=== PATIENT | male | born 1970 | race Caucasian/White ===

== ENCOUNTER 2021-10-09 08:48 | Outpatient (CLI) | payer OTHER, SELFPAY ==
[2021-10-10 17:03] LABS: Testosterone, Adult Male 410 ng/dL (300-890)
== END 2021-10-09 08:49 | disposition home or self-care (01) ==
LOC: NFLDREF 08:48
PROVIDERS: PCP Family Medicine; Visit Provider Family Medicine
DX: E29.1 Testicular hypofunction (principal)
CPT/HCPCS: 84403

== ENCOUNTER 2021-12-03 06:25 | Day surgery (SDC) | payer OTHER, SELFPAY ==
[2021-12-03] VITALS (16 sets, daily range): BP systolic 118–155; BP diastolic 77–102; PULSE 67–100; RESP 16–20; TEMP 36.4–36.9; O2SAT 92–100; BMI 29.7
[2021-12-03] MEDS: LACTATED RINGERS 1000 ML 1,000 ML 100 ML IV (06:30)
[2021-12-03] MEDS: CELECOXIB 200 MG CAPSULE PO (07:15)
[2021-12-03] MEDS: ACETAMINOPHEN 500 MG TABLET 1000 MG PO (07:15)
[2021-12-03] MEDS: OXYCODONE (CR) 10 MG TAB.ER.12H PO (07:15)
[2021-12-03] MEDS: SODIUM CHLORIDE 0.9 % (FLUSH) 10 ML SYRINGE IVF (07:15)
[2021-12-03] MEDS: fentaNYL 100 MCG/2 ML inj IVP (07:30)
[2021-12-03] MEDS: MIDAZOLAM HCL 1 MG/ML inj IVP (07:30)
--- NOTE | 2021-12-03 07:33 | SUR.PREOP ---
TIME?OUT:?724, left shoulder PT/RN/MDA?VERIFICATION?OF?SURGICAL?SITE,?PROCEDURE,?AND?CONSENT OBTAINED?PRIOR?TO?INVASIVE?PROCEDURE.
[2021-12-03] MEDS: CEFAZOLIN 2 GM INJ IVP (08:00)
--- NOTE | 2021-12-03 08:30 | W.PM.NB ---
Nerve Block Nerve Block Time Seen by Provider: 07:30 Date Seen: 12/03/21 Type of block requested by surgeon for post-operative analgesia: interscalene Side: left Time out performed: Yes Verification of patient name: Yes Verification of date of : Yes Site marking: site marked Name of person performing procedure: Ajay Assistants, if any: Robinson Continuous monitoring Was continuous monitoring of O2 sat, B/P, monitor and storage bin tender, recorded every 15 minutes?: Yes Procedure Checklist: sterile prep, needles and gloves Ultrasound guided. Images saved: Yes Medications given in 5ml increments after negative aspiration: Ropivicaine %: 0.5 mL: 20 Needle gauge: 22 Decadron (mg): 10 Precedex (mcg): 25 Patient tolerated procedure well: Yes Block Charges Block Charge (with Pro Fee): Brachial Plexus Use of Ultrasound Machine for Block: Yes- US Guidance/pain block
--- NOTE | 2021-12-03 08:48 | PM.ORPRC ---
Procedure Note Date of procedure: 12/03/21 Procedure: SURGEON: Sid Daniels MD CARE TRANSITIONS MANAGER: Roxann Feldman PA-C PREOPERATIVE DIAGNOSIS: Left shoulder pain, upper subscap tear, biceps tendinopathy, rotator cuff bursitis POSTOPERATIVE DIAGNOSIS: Left shoulder pain, normal subscap, normal biceps, rotator cuff bursitis NAME OF OPERATION: Left shoulder revision arthroscopic subacromial decompression, subacromial bursectomy ANESTHESIA: Supraclavicular block plus general endotracheal ESTIMATED BLOOD LOSS: 5 mL COMPLICATIONS: None SPECIMENS: None DRAINS: None PREOPERATIVE ANTIBIOTICS: Ancef 2 grams INDICATIONS: The patient is a 51-year-old male with a history of left shoulder pain secondary to the above diagnoses. Despite appropriate non operative management, they continue to have symptoms. Operative intervention was recommended. The risks, benefits and expected outcomes were discussed in detail. These included but were not limited to: Infection, bleeding, injury to blood vessel or nerve, venous thromboembolism. All questions were answered to their satisfaction. PROCEDURE: A supraclavicular block was placed by Anesthesia. General anesthesia was administered. The patient was placed in the high beach chair position. The right shoulder was prepped and draped in the usual sterile fashion. The glenohumeral joint was infiltrated with 20 mL of normal saline with epinephrine. The posterior portal was established, the arthroscope was introduced. The anterior portal was established, Diagnostic arthroscopy was performed with findings as follows: The biceps and biceps anchor are intact, there is no instability, there is no intra-articular tendinopathy. The anterior, posterior and superior labrum are normal. Articular surfaces on the humeral head and glenoid are normal. There are no loose bodies. The insertion of the supraspinatus shows a minimal amount of degenerative fraying. The subscap appears pristine. The arthroscope was placed in the subacromial space, the lateral portal was established. The Arthrex [place] was used to dissect the acromion free. Revision acromioplasty was performed with the bur in the posterior portal. An accessory anterolateral portal was placed. There was significant thickening of the subacromial/subdeltoid bursa. This was aggressively debrided with the shaver. The bursal surface of the insertion of the rotator cuff, including subscap is pristine. Portals were closed with a 3-0 nylon. A dry dressing, polar care and sling were applied. Sponge and needle counts were correct x2. The patient tolerated the procedure well. There were no apparent complications. They were carefully transferred to the hospital bed and taken to the postanesthesia care unit in satisfactory condition. PLAN: The patient will be discharged to home. Active range of motion of the shoulder will be allowed, once the block has worn off. They can work on active range of motion of the elbow, wrist and fingers. They will follow up in the office next week for a wound check and an AP and transscapular Y-view of the shoulder prior to being seen.
--- NOTE | 2021-12-03 09:11 | W.ANESCHARGE ---
Anesthesia Charges Start Date/Time Anesthesia Start Date: 12/03/21 Anesthesia Start Time: 07:44 Stop Date/Time Anesthesia Stop Date: 12/03/21 Anesthesia Stop Time: 09:09 Summary Emergency: No
[2021-12-03] MEDS: fentaNYL 100 MCG/2 ML inj 50 MCG IVP ×2 (09:32→09:41)
--- NOTE | 2021-12-03 09:45 | W.ANESCHARGE ---
Anesthesia Charges Start Date/Time Anesthesia Start Date: 12/03/21 Anesthesia Start Time: 07:44 Stop Date/Time Anesthesia Stop Date: 12/03/21 Anesthesia Stop Time: 09:09 Summary Emergency: No
== END 2021-12-03 11:29 | disposition home or self-care (01) ==
PROVIDERS: PCP Family Medicine; Visit Provider Orthopaedic Surgery
PROC: (CPT 23412; principal; 2021-12-03 07:45)
DX: M25.512 Pain in left shoulder (principal); M75.52 Bursitis of left shoulder
CPT/HCPCS: 29822; 29826; 01630; 64415; 76942; A9270; J0330; J0690; J1100; J2250; J2405; J2704; J2795; J3010; J7120

== ENCOUNTER 2022-01-21 12:38 | Outpatient (CLI) | payer OTHER, SELFPAY ==
--- NOTE | 2022-01-21 13:00 | CRLHL7_ITS ---
For Patients: As a result of the Century Cures Act, medical imaging exams and procedure reports are released immediately into your electronic medical record. You may view this report before your referring provider. If you have questions, please contact your health care provider. Indication: Left neck and arm pain. Technique: MRI of the cervical spine was performed without the use of intravenous contrast. Comparison: None relevant available. Findings: The cervical vertebral body heights are maintained without evidence of fracture. No discrete T1 hypointense marrow infiltrating process. Mild disc desiccation without significant height loss. Mild reversal to the cervical lordosis. No abnormal cord signal. C2-3: No spinal canal or neural foraminal narrowing. C3-4: No spinal canal or neural foraminal narrowing. C4-5: Shallow disc bulge with minimal spinal canal narrowing. Mild right neural foraminal narrowing secondary to uncovertebral joint and facet hypertrophy. C5-6: Mild disc bulge effaces the ventral thecal sac and results in mild spinal canal narrowing. Moderate neural foraminal narrowing secondary to uncovertebral joint and facet hypertrophy. C6-7: Disc bulge with superimposed central disc protrusion with resultant mild spinal canal narrowing. No neural foraminal narrowing. C7-T1: No spinal canal or neural foraminal narrowing. Impression: 1. At C4-5, mild right neural foraminal narrowing. 2. At C5-6, mild spinal canal with moderate neural foraminal narrowing. 3. At C6-7, mild spinal canal narrowing. 4. No abnormal cord signal. Dictated by Mario Mckeon MD @ 01/21/2022 8:25:18 PM (Electronically Signed)
== END 2022-01-21 12:39 | disposition home or self-care (01) ==
LOC: MRI 12:38
PROVIDERS: PCP Family Medicine; Visit Provider Family Medicine
DX: M54.2 Cervicalgia (principal); M54.12 Radiculopathy, cervical region; M50.221 Other cervical disc displacement at C4-C5 level; M50.222 Other cervical disc displacement at C5-C6 level; M50.223 Other cervical disc displacement at C6-C7 level
CPT/HCPCS: 72141

== ENCOUNTER 2022-02-17 16:15 | Outpatient (RCR) | payer OTHER, SELFPAY | END 2022-02-17 17:16 | disposition home or self-care (01) | PROVIDERS: PCP Family Medicine; Visit Provider Physician Assistant Surgical | DX: Z98.890 Other specified postprocedural states (principal); Z51.89 Encounter for other specified aftercare | CPT/HCPCS: 97110; 97140; 97161 ==

== ENCOUNTER 2022-11-26 14:56 | Outpatient (REF) | payer OTHER, SELFPAY | END 2022-11-26 14:57 | disposition home or self-care (01) | LOC: NFLDREF 14:56 | PROVIDERS: PCP Family Medicine; Referring Provider Family Medicine; Visit Provider Family Medicine | DX: E29.1 Testicular hypofunction (principal) | CPT/HCPCS: 84403 ==

== ENCOUNTER 2022-12-18 07:52 | Outpatient (CLI) | payer OTHER, SELFPAY | END 2022-12-18 07:53 | disposition home or self-care (01) | LOC: NFLDREF 12-20 20:03 | PROVIDERS: PCP Family Medicine; Referring Provider Family Medicine; Visit Provider Family Medicine | DX: Z12.5 Encounter for screening for malignant neoplasm of prostate (principal); Z13.1 Encounter for screening for diabetes mellitus | CPT/HCPCS: 82947; 84153 ==

== ENCOUNTER 2023-05-11 12:46 | Outpatient (CLI) | payer OTHER, SELFPAY ==
--- NOTE | 2023-05-27 12:02 | W.PM.SLEEP ---
Sleep Study Details Details Interpreting Provider: Elayne Date of Sleep Study: 05/11/23 Sleep Study Details: STUDY TYPE:? Home unattended ? BMI:? 29.8 ORDERING PROVIDER:Jeff Holly INDICATION:? Concerns about sleep apnea ? SLEEP SUMMARY:? 484.8 minutes monitored RESPIRATORY SUMMARY:? AHI 16, supine AHI 76.6, right lateral 18.8, left lateral 8.8, prone 8.3 Low oxygen 85 0.6% of study oxygen less than 90% Snoring 88.2% PERIODIC LIMB MOVEMENTS OF SLEEP:? Not recorded CARDIAC:? 56 beats per minute IMPRESSION:? Moderate obstructive sleep apnea with very severe apnea in the supine position RECOMMENDATION: Treatment options include CPAP AutoSet 4-17, dental appliance and/or airway expansion surgery.
== END 2023-05-11 12:47 | disposition home or self-care (01) ==
LOC: SLEEP 12:48
PROVIDERS: PCP Family Medicine; Visit Provider Otolaryngology
DX: G47.33 Obstructive sleep apnea (adult) (pediatric) (principal)
CPT/HCPCS: 95806

== ENCOUNTER 2024-01-20 08:00 | Outpatient (RCR) | payer OTHER, SELFPAY ==
--- NOTE | 2024-01-11 17:37 | OT.OPOE ---
OT Outpatient Ortho Eval OT Outpatient Ortho Eval* Start: 01/11/24 12:41 Freq: Status: Active Protocol: Document 01/11/24 12:41 LCN (Rec: 01/11/24 13:02 LCN [id number]) E-signed By Luli Mccullough, OTR/L, CLT OT OP Ortho Eval Details Complexity Complexity Low Insurance Information Insurance Information [facility] Outpatient History/Precautions Current Condition/Medical Diagnosis Referring Provider Bakari Bradshaw Medical Diagnoses Left medial elbow epicondylitis Treatment Diagnosis L elbow pain, stiffness, weakness of drop clipper Date of Onset 01/11/24 Other Conditions Pt very healthy, mostly orthopedic issues in the past 4 shoulder surgeries of L side ( ended up shortening lateral clavicle to reduce impingement 2015, all resolved now) and cervical radiculopathy (C5-6 level ; had EMG 2021 responded well to 10 d course of oral steroids) Medical/Functional History Medical History Reviewed Yes Prior Level of Function/Mobility Pt active at high level, 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 Keyboard on table top Hobbies rasing chickens[place] , kids events [employer] free weights 5d/ week. Ortho Subjective Subjective Subjective Mickey Jordan is a pleasant 53 y/o male who fll a pop in L medial elbow while doing a weight lifting shift from lift to overhead press, no bruising after. Low grade pain during certain planes of movement, gets worse if he leans on it while driving, using keyboard and while scrolling on his phone. Has to avoid forward leaning row to triceps extension and lat pull downs. Sore for 1-2 hours after weightlifting. He does frequent stretching of his forearms, no trial of heat /ice. No imagery yet, but did see ortho for this Dr. Daniels on 08/19/23, was referred for OT at that time. Re-referred for OT voa is PCP Bakari Bradshaw at his annual fall check up. Pain Assessment Pain Pain Yes Pain Comments 2-3/10 with resisted drop clipper, pinching, moving between pronation to supination. Mostly tender at L medial epicondyle but also at lateral epicondyle. Denies numbness/tingling. PALPATION--Point tender at medial epicondyle and pronator teres, gritty muscle bellies at FCU/flexor muscle bulk. Thickness at tricep and biceps inserts. Range of Motion and Strength Shoulder Range of Motion and Strength Shoulder Range of Motion and Strength Full AROM for B shoulders, elbows, wrists. MMT SH FL , ABD 5/5 L shoulder IR at rib side refers to medial elbow 4+/5. Elbow/Forearm Range of Motion and Strength Elbow/Forearm Range of Motion and MMT Biceps 4+/5 with 2-3/10 Strength soreness at medial elbow while resisted in supination and neutral, pronated better. Triceps 5/5 WR EX, RD, UD and pronation all WNL. Supination 4/5 with 2-3/10 twinge at L medial elbow 4+/5. Hand Pinch/Statistical Consultant Strength Hand Pinch/Statistical Consultant Strength Hand Pinch/Statistical Consultant Strength Left Hand,Right Hand Left Hand Statistical Consultant Strength Position 1 in Elbow 110 Flexion (lbs) Statistical Consultant Strength Position 2 in Elbow 75 Extension (lbs) Lateral Pinch Strength (lbs) 29 Three Point Pinch (lbs) 25 Right Hand Statistical Consultant Strength Position 1 in Elbow 114 Flexion (lbs) Statistical Consultant Strength Position 2 in Elbow 110 Extension (lbs) Lateral Pinch Strength (lbs) 30 Three Point Pinch (lbs) 25 Comments Comments Statistical Consultant WNL for age/gender (103- 113 is WNL). L drop clipper in position 2/elbow extended is 3 /10 pn tender at lateral epicondyle. Upper Extremity Special Tests Elbow Cozens Test Negative Right,Positive Left OT Problems Problems Problems Decreased Strength,Pain, Sensory Sensitivity,Lifting, Gripping Problems Comments 3/10 painful during scap row, pull down, has to watch hand positioning carefully, adjusting hands while lifting larger laods. Patient Potential Excellent Assessment Assessment Assessment Mickey is having L elbow ( moreso medial but occasionally lateral epicondyle area) tissue texture changes, edema, pain, ROM and drop clipper strength loss of L /wrist/elbow limiting daily tasks, impacting lifting, gripping and prolonged typing/scrolling positions. He would benefit from skilled OT to address these areas. Occupational Therapy Treatment Plan - OP Potential Rehabilitation Potential Excellent Set Goals Goals Set with Patient Yes Goals Goals In 8 weeks, Mickey will demonstrate:? 1) Decreased pn to <2/10 80% of the time with sustained gripping, carrying groceries, reading on tablet and weightlifting. 2) I HEP for stretching, gradual strengthening and self mgmt strategies. 3) improved L drop clipper strength to 100# with elbow extended and balanced MMT of SH IR, biceps in flexion/neutral with L elbow pain < 1/10. 4)??Pt to be fit with functional bracing (for elbow, wrist) and use adaptive strategies to protect joint integrity to support less pain with ADL. Treatment Plan Treatment Plan Evaluation,Edema Control, Iontophoresis,Joint Mobilization,Manual Therapy, Ultrasound,Therapeutic Exercise,Self Care/Home Management,Education Expected Frequency 1-2x Week Expected Duration 8-10 Weeks Home Program Home Program Home Program Initiated Home Program Specifics Ice cup massage after lifting for the next weeks, positioning of elbow for reading, computer tasks with improved joint protection, and added wrist rotation to WR EX and WR FL end range stretches . Certification Certification Statement I Certify That: Therapy Services Provided, Therapy Plan Established, Therapy Plan Reviewed Certification Information Clinic ID # [id number] Initial Certification Date 01/11/24 Recertification Due Date 04/10/24 Provider Signature Required Communication Only-No Signature Required
== END 2024-05-19 23:59 | disposition home or self-care (01) ==
PROVIDERS: PCP Family Medicine; Visit Provider Family Medicine
DX: M77.02 Medial epicondylitis, left elbow (principal); M25.522 Pain in left elbow; M25.622 Stiffness of left elbow, not elsewhere classified; R53.1 Weakness; Z51.89 Encounter for other specified aftercare
CPT/HCPCS: 97033; 97035; 97140; 97165; 97535

== ENCOUNTER 2024-04-28 08:00 | Outpatient (CLI) | payer OTHER, SELFPAY | END 2024-04-28 08:01 | disposition home or self-care (01) | LOC: NFLDREF 04-29 09:51 | PROVIDERS: PCP Family Medicine; Referring Provider Family Medicine; Visit Provider Family Medicine | DX: N52.9 Male erectile dysfunction, unspecified (principal); Z13.220 Encounter for screening for lipoid disorders | CPT/HCPCS: 80061; 84403 ==

== ENCOUNTER 2024-05-11 06:55 | Outpatient (CLI) | payer OTHER, SELFPAY ==
--- NOTE | 2024-05-11 07:15 | MR_ITS ---
[address] [address] Phone:?[phone] Fax:?[phone] Referring Physician Information: Mickey Naik M.D. [address] [facility] [address] Phone:?[phone] Fax:?[phone] Patient:?Mickey Handjoycerommel CherylB:?1970 Sex:?Male Phone:?[phone] [facility] MRN:?[id number] Exam Date:?05/11/2024 Original Report EXAM: MRI of the LEFT ELBOW, without contrast CLINICAL: Male, 53 years old, with left elbow pain. INDICATION: Evaluate for elbow internal derangement etiology. PRIOR SURGERY: None reported. PLAIN FILMS: None available. COMPARISONS: None available. TECHNICAL: Using a 1.5T MR scanner and a localizing surface coil: 3.0 mm?sagittals: PD, T2 3.0 mm?coronals: PD, T2, STIR 3.0 mm?axials: PD, T2 SEDATION: None. CONTRAST: None. IMPRESSION: 1. Moderate tendinosis/tendinopathy and ill-defined deep surface partial tear of the common extensor tendon origin at the lateral humeral epicondyle without adjacent reactive marrow or soft tissue edema, but with potential to be associated with any clinical presentation of lateral epicondylitis. 2. Otherwise unremarkable left elbow MRI. 3. No osteochondral abnormalities. 4. No ligament injuries. 5. No other musculotendinous abnormalities. 6. No pathologic effusion. FINDINGS: Elbow joint: Effusion: Physiologic. Ganglion cyst: None. Radiohumeral plica: No pathologic plica. Osteochondral surfaces: Intact and normal. Loose bodies: None. Bursae: No pathologic bursae/bursitis. Bones: Humerus: Intact and normal.. Radius: Intact and normal. Ulna: Intact and normal. Ligaments: Medial ulnar collateral: Intact and normal. Radial collateral proper: Intact and normal. Lateral ulnar collateral: Intact and normal. Myotendinous structures: Biceps: Intact and normal. Triceps: Intact and normal. Brachialis: Intact and normal. Supinator: Intact and normal. Forearm extensors: Moderate intrasubstance and deep surface tendinopathy and expected ill-defined deep surface partial tear of the common extensor tendon origin at lateral humeral epicondyle is not associated with full-thickness tear and without overlying soft tissue edema or underlying bone marrow edema (coronal STIR & PD series 5 & 7, images 9-12; axial PD & T2 series 4 & 3, images 19-16). Forearm flexors: Intact and normal. Nerves: Ulnar: Normal. No anconeus epitrochlearis accessory muscle. Median: Normal. Radial: Normal. [facility] Electronically signed on 05/12/2024 12:24:00 PM by Koko New M.D. Addendum A EXAM: MRI of the LEFT ELBOW, without contrast (AMENDED, SEE UNDERLINED in CLINICAL, MYOTENDINOUS STRUCTURES, and IMPRESSION) CLINICAL: Male, 53 years old, with left elbow pain. INDICATION: Evaluate for elbow internal derangement etiology.?Also reported element of medial elbow symptoms. PRIOR SURGERY: None reported. PLAIN FILMS: None available. COMPARISONS: None available. TECHNICAL: Using a 1.5T MR scanner and a localizing surface coil: 3.0 mm?sagittals: PD, T2 3.0 mm?coronals: PD, T2, STIR 3.0 mm?axials: PD, T2 SEDATION: None. CONTRAST: None. IMPRESSION: 1. Moderate tendinosis/tendinopathy and ill-defined deep surface partial tear of the common extensor tendon origin at the lateral humeral epicondyle without adjacent reactive marrow or soft tissue edema, but with potential to be associated with any clinical presentation of lateral epicondylitis. 2.?Less prominent appearing mild tendinosis/tendinopathy of the common flexor tendon origin with potential to be associated with any clinical presentation of medial epicondylitis . 3. No osteochondral abnormalities. 4. No ligament injuries. 5. No other musculotendinous abnormalities. 6. No pathologic effusion. FINDINGS: Elbow joint: Effusion: Physiologic. Ganglion cyst: None. Radiohumeral plica: No pathologic plica. Osteochondral surfaces: Intact and normal. Loose bodies: None. Bursae: No pathologic bursae/bursitis. Bones: Humerus: Intact and normal Radius: Intact and normal. Ulna: Intact and normal. Ligaments: Medial ulnar collateral: Intact and normal. Radial collateral proper: Intact and normal. Lateral ulnar collateral: Intact and normal. Myotendinous structures: Biceps: Intact and normal. Triceps: Intact and normal. Brachialis: Intact and normal. Supinator: Intact and normal. Forearm extensors: Moderate intrasubstance and deep surface tendinopathy and expected ill-defined deep surface partial tear of the common extensor tendon origin at lateral humeral epicondyle is not associated with full-thickness tear and without overlying soft tissue edema or underlying bone marrow edema (coronal STIR & PD series 5 & 7, images 9-12; axial PD & T2 series 4 & 3, images 19-16). Forearm flexors:?Less prominent-appearing element of tendinosis of the common flexor tendon origin which could also be associated with any clinical presentation of medial epicondylitis (coronal images 14-13; axial images 19- 18) Nerves: Ulnar: Normal. No anconeus epitrochlearis accessory muscle. Median: Normal. Radial: Normal. [facility] Electronically signed on 06/08/2024 11:24:00 AM by Koko New M.D.
== END 2024-05-11 06:56 | disposition home or self-care (01) ==
LOC: MRI 06:55
PROVIDERS: PCP Family Medicine; Visit Provider Family Medicine
DX: M25.522 Pain in left elbow (principal); M77.02 Medial epicondylitis, left elbow
CPT/HCPCS: 73221

== ENCOUNTER 2024-06-09 06:31 | Outpatient (CLI) | payer OTHER, SELFPAY ==
[2024-06-09 07:06] VITALS: BP 140/83; PULSE 81; RESP 16; O2SAT 96
[2024-06-09 07:28] VITALS: BP 123/71; PULSE 75; RESP 16; O2SAT 96
--- NOTE | 2024-06-09 07:35 | PM.ORPRC ---
Procedure Note Date of procedure: 06/09/24 Procedure: PREOPERATIVE DIAGNOSIS: Left elbow common flexor tendinopathy POSTOPERATIVE DIAGNOSIS: Left elbow common flexor tendinopathy SURGEON: Sid Daniels MD [employer]ROL [employer]ICE LIEUTENANT: Roxann Feldman PA-C NAME OF OPERATION: Percutaneous tenotomy flexor, pronator origin ANESTHESIA: Local ESTIMATED BLOOD LOSS: 0 mL. COMPLICATIONS: None. SPECIMENS: None. DRAINS: None. PREOPERATIVE ANTIBIOTICS: None INDICATIONS: The patient is a 53-year-old with a history of left elbow pain secondary to the above diagnosis. Despite appropriate non operative management, they continue to have symptoms. Operative intervention was recommended. The risks, benefits and expected outcomes were discussed in detail. These included but were not limited to: Infection, bleeding, injury to blood vessel or nerve, venous thromboembolism. All questions were answered to their satisfaction. PROCEDURE: The patient was placed in a lazy lateral decubitus position, left side down on the hospital cart. The medial elbow was imaged in the long axis with the ultrasound transducer. Normal acoustic landmarks were identified. We then sterilely prepped and draped the skin, and used a sterile probe cover with sterile gel. Local anesthesia was established with 10 mL of a solution containing 2 % lidocaine without epinephrine, 0.5% Marcaine without epinephrine and sodium bicarbonate. An 11 blade was used to incise the skin. The Tenex TX 1 micro tip was used to treat the common flexor tendon for a total of 2 minutes and 36 seconds. The incision was Steri-Stripped closed. A dry dressing was applied. Sponge and needle counts were correct x2. The patient tolerated the procedure well. There were no apparent complications. They were discharged to home in satisfactory condition. PLAN: The patient may use the upper extremity as tolerates. Tylenol, ice and ibuprofen can be used for pain/discomfort. They may ramp up activity as the elbow will allow. They will follow up in the office in 6 weeks to assess their progress.
== END 2024-06-09 07:36 | disposition home or self-care (01) ==
LOC: OP CLINIC 06:31
PROVIDERS: PCP Family Medicine; Visit Provider Orthopaedic Surgery
DX: M77.02 Medial epicondylitis, left elbow (principal); M25.522 Pain in left elbow; G89.29 Other chronic pain
CPT/HCPCS: 24357; 76942; J0665

== ENCOUNTER 2024-12-09 07:55 | Outpatient (CLI) | payer OTHER, SELFPAY | END 2024-12-09 07:56 | disposition home or self-care (01) | LOC: NFLDREF 12-12 15:57 | PROVIDERS: PCP Family Medicine; Referring Provider Family Medicine; Visit Provider Family Medicine | DX: E29.1 Testicular hypofunction (principal) | CPT/HCPCS: 80053; 80061; 84403; G0103 ==